=== PATIENT | female | born 1990 | race African-American/Black ===

== ENCOUNTER 2019-11-27 14:57 | Inpatient (IN) ==
[2019-11-27] MEDS ORDERED: INSULIN REGULAR, HUMAN 100 UNITS in NORMAL SALINE 100 ML IV PRN ×2 (15:14)
[2019-11-27] MEDS ORDERED: RINGER'S SOLUTION,LACTATED 1,000 ML IV ONE (15:14)
[2019-11-27] MEDS ORDERED: OXYTOCIN/DEXTROSE 5%-WATER 30 UNITS/500 ML BAG IV ONE (15:14)
[2019-11-27] MEDS ORDERED: ONDANSETRON 4 MG TAB.RAPDIS PO PRN (15:14)
[2019-11-27 15:46] LABS: Hematocrit 40.9 % (37.0-47.0); Hemoglobin 13.6 gm/dL (12.5-16.0); Mean Corpuscular Hemoglobin 31.3 pg (27-31); Mean Corpuscular Hgb Conc 33.3 g/dl (32-36); Mean Platelet Volume 9.1 fl (8-12.5); Neutrophil # 7.2 K/mm3 (1.3-6.0); Neutrophil % 72.7 % (42-75.0); Platelet Count 317 K/mm3 (150-450); Red Blood Count 4.35 M/mm3 (4.2-5.4); Red Cell Distribution Width 12.7 % (11.5-14.0); White Blood Count 9.9 K/mm3 (4.0-10.5)
[2019-11-27 15:55] LABS: Random Urine Total Protein Less than 6.0 mg/dL (0-12)
[2019-11-27 15:57] LABS: Albumin * 2.9 gm/dl (3.4-5.0); Anion Gap 11.4 mmol/L (6.8-13.8); BUN/Creatinine Ratio 10.8 (9.0-21.6); Bilirubin, Total 0.4 mg/dL (0.0-1.1); Ca. Corrected For Albumin 10.7 mg/dL (8.4-10.2); Calcium * 10.1 mg/dL (7.9-10.9); Carbon Dioxide 25.2 mmol/L (24-32.6); Potassium 3.6 mmol/L (3.4-4.6); Total Protein 7.7 gm/dL (6.2-8.2)
[2019-11-27 16:18] LABS: Cocaine Ur Negative (NEGATIVE); Urine Barbiturate Negative (NEGATIVE); Urine Benzodiazepines Negative (NEGATIVE); Urine Opiates Negative (NEGATIVE); Urine PCP Negative (NEGATIVE); Urine THC Negative (NEGATIVE)
[2019-11-27] MEDS ORDERED: MISOPROSTOL 200 MCG TABLET PO PRN (16:27)
[2019-11-27] MEDS ORDERED: MISOPROSTOL 100 MCG TABLET ONE (16:42)
[2019-11-27] MEDS: MISOPROSTOL 100 MCG TABLET PO PRN ×2 (17:02→21:04)
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
--- NOTE | 2019-11-28 05:14 | PN ---
Progess Note - Interim Date: 11/28/19 Time: 05:08 Narrative: 11/28/19 05:08 Patient becoming more uncomfortable with contractions. Denies headache, visual changes, or epigastric pain. Vital signs stable. Blood pressures over the past few hours within normal limits. Blood sugars all under 100. Pitocin was at 2 mu/min but turned off due to difficulty monitoring baby and contractions. FHT: 140 baseline, moderate variability with occasional late deceleration contractions q 3-4 min Cervix: 5/90/-3, AROM-clear. FSE and IUPC placed. Impression: Intrauterine at 38-6/7 weeks induction of labor for preeclampsia. Gestational diabetes-stable. Plan: Anticipate normal spontaneous vaginal delivery within the next few hours.
--- NOTE | 2019-11-28 07:00 | PN ---
Progess Note - Interim Date: 11/28/19 Time: 06:57 Narrative: 11/28/19 06:57 Patient comfortable with contractions Vital signs stable. Occasional elevated blood pressure 157/96 Pitocin at 2 mu/min. Blood sugar 94 FHT: 150 baseline, reassuring with early and variable decelerations contractions q 2-3 min Cervix: 8/90/-3 Impression: Intrauterine at 38-6/7 weeks induction of labor for preeclampsia. Gestational diabetes-stable Plan: Anticipate normal spontaneous vaginal delivery within the next couple hours.
--- NOTE | 2019-11-28 10:04 | OR ---
Operative Report - Dictated Report Narrative: Spontaneous vaginal delivery of vigorously crying viable female at 0944 on 11/28/2019 with Apgars 9 and 9, weighing 3437 g and MICHAEL position. Cord clamping delayed approximately 1 minute Placenta delivered complete, intact, with three vessel cord Estimated blood loss: 100 mL Anesthesia: None Lacerations: None
[2019-11-28] MEDS ORDERED: GLYCERIN/WITCH HAZEL LEAF 40 APPL BOX TP PRN (10:09)
[2019-11-28] MEDS ORDERED: IBUPROFEN 800 MG TABLET PO PRN (10:09)
[2019-11-28] MEDS ORDERED: SENNOSIDES 8.6 MG TABLET PO PRN (10:09)
[2019-11-28] MEDS ORDERED: OXYTOCIN/DEXTROSE 5%-WATER 30 UNITS/500 ML BAG IV ONE (10:09)
[2019-11-28] MEDS ORDERED: BENZOCAINE/MENTHOL 81 SPRAY CAN TP PRN (10:09)
[2019-11-28] MEDS ORDERED: BISACODYL 10 MG SUPP.RECT RC PRN (10:09)
[2019-11-28] MEDS ORDERED: HYDROCORTISONE 30 APPL TUBE TP PRN (10:09)
[2019-11-28] MEDS ORDERED: hydrOXYzine PAMOATE 25 MG CAPSULE PO PRN (10:10)
[2019-11-28] MEDS: IBUPROFEN 800 MG TABLET PO PRN ×2 (11:03→19:51)
[2019-11-28] MEDS: DOCUSATE SODIUM 100 MG CAPSULE PO SCH (20:50)
[2019-11-28] MEDS: oxyCODONE HCL/ACETAMINOPHEN 1 TAB TABLET PO PRN (20:50)
[2019-11-29] MEDS: oxyCODONE HCL/ACETAMINOPHEN 1 TAB TABLET PO PRN ×3 (00:56→23:46)
[2019-11-29] MEDS: IBUPROFEN 800 MG TABLET PO PRN ×3 (04:42→23:46)
[2019-11-29] MEDS ORDERED: LEVOTHYROXINE SODIUM 100 MCG TABLET PO SCH (07:00)
[2019-11-29] MEDS: LEVOTHYROXINE SODIUM 100 MCG TABLET PO SCH (07:30)
--- NOTE | 2019-11-29 08:13 | PN ---
Subjective - Date and Time Seen Date: 11/29/19 Time: 08:11 Objective - Vitals Vitals: Last Vital Signs Temp 36.1 C 11/29/19 07:25 Pulse 87 11/29/19 07:25 Resp 20 11/29/19 07:25 BP 113/60 11/29/19 07:25 Pulse Ox 99 11/29/19 07:25 Patient denies complaints. Fasting blood sugar 91, 1 hour postprandial pending lochia wnl abdomen - soft, nontender Uterus -firm, at umbilicus - 1 no calf tenderness Impression: day #1 - s/p spontaneous vaginal delivery. Preeclampsia- resolved. Gestational diabetes-resolving. Anxiety/depression with history of suicide attempt during this . Plan: Continue routine care. Continue to monitor blood pressures and for signs and symptoms of preeclampsia. Because blood sugar was on borderline, recheck fasting and 1 hour postprandial tomorrow morning. Psychiatric consult to assess and make sure patient is safe and receiving best treatment possible for her anxiety and depression. Assessment/Plan - Problems/Diagnosis (1) Pre-eclampsia Problem: Acute Qualifiers: Trimester: third trimester Qualified Code(s): O14.93 - Unspecified pre- eclampsia, third trimester (2) Anxiety and depression Problem: Inactive (3) Insulin dependent gestational diabetes mellitus (GDM), antepartum Problem: Acute (4) Adult BMI 45.0-49.9 kg/sq m Problem: Chronic (5) Hypothyroid Problem: Chronic Qualifiers: Hypothyroidism type: acquired Qualified Code(s): E03.9 - Hypothyroidism, unspecified
[2019-11-29] MEDS ORDERED: DOCUSATE SODIUM 100 MG CAPSULE ONE (09:06)
[2019-11-29] MEDS: FERROUS SULFATE 325 MG TABLET PO SCH (09:07)
[2019-11-29] MEDS: PRENATAL VITS96/IRON FUM/FOLIC 1 TAB TABLET PO SCH (09:08)
[2019-11-29] MEDS: DOCUSATE SODIUM 100 MG CAPSULE PO SCH ×2 (09:08→20:41)
--- NOTE | 2019-11-29 10:17 | CONS ---
- Reason for consultation (1) Anxiety and depression Date of Service: 11/29/19 HPI - General Date of Service: 11/29/19 Narrative: [id number] Source: patient, RN notes reviewed, old records Exam Limitations: no limitations - History of Present Illness Allergies/Adverse Reactions: Allergies No Known Allergies Allergy (Verified 11/27/19 15:10) Home Medications: Home Medications Medication Instructions Recorded Last Taken Vits96/Iron Fum/Folic 1 tab PO DAILY 11/06/13 11/27/19 [ S] Ferrous Sulfate [Iron] 325 mg PO DAILY 06/10/19 11/27/19 levothyroxine 200 mcg tablet 200 mcg PO DAILY #30 tab 10/17/19 11/27/19 Ibuprofen [Motrin] 200 - 800 mg PO Q6H PRN #100 tab 11/29/19 Unknown sertraline 50 mg tablet 50 mg PO DAILY #30 tab 11/29/19 Unknown Procedures Delivery of Products of Conception, External Approach (05/13/15) Drainage of Amniotic Fluid, Therapeutic from Products of Conception, Via Natural or Artificial Opening (05/13/15) Introduction of Regional Anesthetic into Epidural Space, Percutaneous Approach (05/13/15) Monitoring of Products of Conception, Cardiac Rate, External Approach (05/13/15) Other monitoring (11/13/13) Medications - Medications Current Medications: Current Medications Benzocaine/Menthol (Dermoplast Blaine) 1 spray TP PRN PRN PRN Reason: Perineal discomfort Stop: 12/28/19 10:10 Last Admin: 11/28/19 13:18 Dose: 1 spray Documented by: Docusate Sodium (Colace) 100 mg PO BID [facility] Stop: 12/28/19 21:01 Last Admin: 11/29/19 09:08 Dose: 100 mg Documented by: Ferrous Sulfate (Ferrous Sulfate) 325 mg PO DAILY [facility] Stop: 12/29/19 09:01 Last Admin: 11/29/19 09:07 Dose: 325 mg Documented by: Ibuprofen (Motrin) 800 mg PO Q6H PRN PRN Reason: Mild pain (pain scale 1-3) Stop: 12/28/19 10:10 Last Admin: 11/29/19 04:42 Dose: 800 mg Documented by: Levothyroxine Sodium (Synthroid) 200 mcg PO DAILY@0700 [facility] Stop: 12/29/19 07:01 Last Admin: 11/29/19 07:30 Dose: 100 mcg Documented by: Oxycodone/Acetaminophen (Percocet 5 Mg/325 Mg) 1 tab PO Q3H PRN PRN Reason: Moderate Pain (pain scale 4-6) Stop: 12/28/19 10:10 Last Admin: 11/29/19 00:56 Dose: 1 tab Documented by: Multivit/Folic Acid/Iron ( S) 1 tab PO DAILY [facility] Stop: 12/29/19 09:01 Last Admin: 11/29/19 09:08 Dose: 1 tab Documented by: Fadumo Galvan/Glycerin (Tucks Medicated Pads) 1 appl TP PRN PRN PRN Reason: Perineal discomfort Stop: 12/28/19 10:10 Last Admin: 11/28/19 13:19 Dose: 1 appl Documented by: Review of Systems - Review of Systems Neurological: Present: Anxiety, Depressed Physical Examination - Exam Narrative: Patient seen as a consult for anxiety and depression. She states that she had a serious overdose attempt 7-8 months ago during 1st trimester of . States that she was tired of her life and didn't want to be here anymore. Since this suicide attempt, [facility] has been involved. She is living with mother and has 2 other children. Voices a strong desire to become a family again and get her anxiety and depression under control. Mom is supportive. States that she has feelings of hopeless, worthlessness and guilt. Anxiety is present daily. Has suffered from anxiety and depression for years, has had prior medications but none that helped. Anxiety will escalate to the point of panic attacks. Also having issues sleeping. Won't be able to sleep unless there is a light one. Will wake up and be unable to move, feels like a demon in on her when this happens. Discussed depression, anxiety and sleep paralysis. Discussed past medications. Discussed risk vs. benefit of medications while breast feeding. Patient understands and wishes to proceed with recommended medication. Will start on Sertraline 50 mg daily. Patient is scheduled for new patient appointment with me on 12/25/19 at 9 am. Reminder card given. Written instructions provided. Patient voices understanding. Vital Signs: Vital Signs - Last Taken Temp 36.1 C 11/29/19 07:25 Pulse 87 07/29/20 07:25 Resp 20 11/29/19 07:25 BP 113/60 11/29/19 07:25 Pulse Ox 99 11/29/19 07:25 O2 Oxygen Delivery Method Room Air Constitutional: Present: Alert, Oriented x3, Cooperative, No distress Thoughts: Present: normal thought pattern, no apparent hallucination, normal mood /affect - Assessments/Findings (1) Anxiety and depression Problem: Inactive
[2019-11-29] MEDS: SERTRALINE HCL 50 MG TABLET PO SCH (11:30)
[2019-11-30] MEDS: LEVOTHYROXINE SODIUM 100 MCG TABLET PO SCH (06:51)
[2019-11-30 07:55] VITALS: BP 110/55
[2019-11-30] MEDS: PRENATAL VITS96/IRON FUM/FOLIC 1 TAB TABLET PO SCH (08:24)
[2019-11-30] MEDS: DOCUSATE SODIUM 100 MG CAPSULE PO SCH (08:24)
[2019-11-30] MEDS: SERTRALINE HCL 50 MG TABLET PO SCH (08:24)
[2019-11-30] MEDS: FERROUS SULFATE 325 MG TABLET PO SCH (08:25)
--- NOTE | 2019-11-30 09:21 | PN ---
Subjective - Date and Time Seen Date: 11/30/19 Time: 09:17 Objective - Vitals Vitals: Last Vital Signs Temp 36.6 C 11/30/19 06:45 Pulse 78 11/30/19 06:45 Resp 18 11/30/19 06:45 BP 110/55 11/30/19 06:45 Pulse Ox 95 11/30/19 06:45 Patient denies complaints. Specifically denies headache, visual changes, or epigastric pain. Fasting blood sugar 70 Lochia wnl abdomen - soft, nontender Uterus -firm, at umbilicus - 2 DTR-2/4, no clonus, mild calf tenderness with no edema, cords, or induration Impression: day #2 - s/p spontaneous vaginal delivery. Preeclampsia- resolved. Gestational diabetes (insulin-dependent)-resolved. Hypothyroid- stable. Anxiety/depression being treated by psychiatry -denies suicidal thoughts or ideation. Plan: Routine discharge instructions. Preeclampsia precautions. Depression/suicidal precautions. Follow-up in 1 week for reassessment. Assessment/Plan - Problems/Diagnosis (1) Pre-eclampsia Problem: Resolved Qualifiers: Trimester: third trimester Qualified Code(s): O14.93 - Unspecified pre- eclampsia, third trimester (2) Anxiety and depression Problem: Chronic (3) Insulin dependent gestational diabetes mellitus (GDM), antepartum Problem: Resolved (4) Adult BMI 45.0-49.9 kg/sq m Problem: Chronic (5) Hypothyroid Problem: Chronic Qualifiers: Hypothyroidism type: acquired Qualified Code(s): E03.9 - Hypothyroidism, unspecified
== END 2019-11-30 19:20 | disposition home or self-care (01) | DRG 998 ==
LOC: OB 14:57
PROVIDERS: ADMIT Obstetrics & Gynecology; ATTEND Obstetrics & Gynecology
CPT/HCPCS: 36415; 59025; 80053; 80307; 82570; 84155; 84156; 85025; 88307; 88888